=== PATIENT | male | born 1965 | race Caucasian/White ===

== ENCOUNTER 2018-07-27 13:08 | Emergency (ER) | payer MEDICAID ==
[~2018-07-27] VITALS: Ht 162.6 cm; Wt 99.8 kg
[~2018-07-27 13:08] MED LIST: ASPI-524 PO; [UNRECOGNIZED DRUG - OTHER]
--- NOTE | 2018-07-27 13:11 | NUR ---
PT BIB MOTHER TO ER BED 09 C/O HEADACHE AND LIGHTHEADEDNESS S/P POSSIBLE SYNCOPAL EPISODE YESTERDAY. PT IS AAOX3, DENIES ANY CHEST PAIN OR SOB. PER , PT STATES HEADACHE PROGRESSIVELY GOT WORST SINCE FALLING YESTERDAY. PT IS GOWNED AND PLACED ON MONITOR. STABLE VITALS AWAITING MD ALFREDO. Addendum: 07/27/18 at 1832 by HELENE PT IS BIB . NOT MOTHER.
--- NOTE | 2018-07-27 13:33 | NUR ---
DANIEL BAINS AT BEDSIDE FOR EVAL.
--- NOTE | 2018-07-27 13:39 | NUR ---
Angelia faulkner in [facility] - 07/27/18 at 1611 by HELENE DANIEL BAINS AT BEDSIDE FOR SAYDA.
--- NOTE | 2018-07-27 13:40 | NUR ---
IV LINE STARTED BLOOD DRAWN AND SENT TO LAB.
[2018-07-27] MEDS ORDERED: ACETAMINOPHEN ES 500 MG TABLET ONE (13:48)
[2018-07-27 13:51] LABS: BASOPHILS # (AUTO) 0.1 /CMM (0.0-0.2); BASOPHILS % (AUTO) 0.6 % (0.0-2.0); EOSINOPHILS % (AUTO) 0.4 % (0.0-6.0); HEMATOCRIT 46 % (39-51); HEMOGLOBIN 15.9 g/dL (13.5-17.5); LYMPHOCYTES # (AUTO) 1.7 /CMM (0.8-4.8); LYMPHOCYTES % (AUTO) 15.4 % (20.0-44.0); MEAN CORPUSCULAR HGB CONC 35 g/dl (31.0-36.0); MEAN CORPUSCULAR VOLUME 93 fL (80-96); MONOCYTES # (AUTO) 0.6 /CMM (0.1-1.30); MONOCYTES % (AUTO) 5.5 % (2.0-12.0); NEUTROPHILS # (AUTO) 8.7 /CMM (1.8-8.9); NEUTROPHILS % (AUTO) 78.1 % (43.0-81.0); PLATELET COUNT (AUTO) 217 /CMM (150-450); RED BLOOD CELL COUNT(AUTO) 4.92 MIL/uL (4.5-6.0); WHITE BLOOD COUNT (AUTO) 11.1 K/uL (4.3-11.0)
[2018-07-27 13:58] LABS: CALCIUM, SERUM 9.5 mg/dL (8.5-10.1); CARBON DIOXIDE 28 mmol/L (21-32); CHLORIDE 103 mmol/L (98-107); CREATININE 0.9 mg/dL (0.6-1.3); GLUCOSE 145 mg/dL (74-106); POTASSIUM 4.1 mmol/L (3.5-5.1); SODIUM SERUM 139 mmol/L (136-145); UREA NITROGEN, BLOOD 14 mg/dL (7-18)
[2018-07-27] MEDS ORDERED: IV NS 0.9% 1,000 ML BAG IV ONE (14:00)
[2018-07-27] MEDS ORDERED: ACETAMINOPHEN 325 MG TABLET PO ONE (14:00)
[2018-07-27 14:03] LABS: ALANINE AMINOTRANSFERASE 67 U/L (12-78); ALBUMIN 4.1 g/dL (3.4-5.0); ALKALINE PHOSPHATASE 75 U/L (46-116); ASPARTATE AMINOTRANSFERASE 26 U/L (15-37); BILIRUBIN,DIRECT 0.1 mg/dL (0.0-0.2); BILIRUBIN,TOTAL 0.5 mg/dL (0.2-1.0); TOTAL PROTEIN, SERUM 8.5 g/dL (6.4-8.2)
--- NOTE | 2018-07-27 15:14 | NUR ---
DR WHITE AT BEDSIDE FOR EVAL.
[2018-07-27] MEDS ORDERED: LEVETIRACETAM (500MG) 500 MG in IV NS 0.9% 100 ML IV ONE (15:30)
[2018-07-27] MEDS ORDERED: MIRT15TA7 PO (15:45)
[2018-07-27] MEDS ORDERED: OMEG1CAP PO (15:45)
[2018-07-27] MEDS ORDERED: ERGO500040 PO (15:45)
[2018-07-27] MEDS ORDERED: IBUP-1955 PO (15:45)
[2018-07-27] MEDS ORDERED: AMLO5TAB9 PO (15:45)
[2018-07-27] MEDS ORDERED: ASPI-1152 PO (15:45)
[2018-07-27] MEDS ORDERED: ATOR40TA PO (15:45)
[2018-07-27] MEDS ORDERED: LOSA1TAB36 PO (15:45)
--- NOTE | 2018-07-27 16:03 | NUR ---
[facility] PAGED, TECHNICAL SERVICES ASSISTANT
[2018-07-27] MEDS ORDERED: HYDROCODONE/APAP 5/325MG 1 EACH TABLET ONE (17:46)
[2018-07-27] MEDS ORDERED: HYDROCODONE/APAP 5/325MG 1 EACH TABLET PO ONE (18:00)
--- NOTE | 2018-07-27 18:45 | NUR ---
PT RESTING IN BED. APPEARS MORE RELAXED. ON MONITOR. VSS. AT BEDSIDE.
--- NOTE | 2018-07-27 18:51 | NUR ---
CALLED [facility] AT [phone], SPOKE WITH FABIOLA, HE IS STILL WORKING ON TRANSFER.
--- NOTE | 2018-07-27 19:21 | NUR ---
REPORT TO CANDY FISH FOR [facility].
--- NOTE | 2018-07-27 19:28 | NUR ---
RECEIVED CALL FROM NADIYA WITH [facility] TRANSF[facility], PT ACCEPTED TO [facility] BY DR. DELGADILLO, GOING TO ROOM ICU BED 10 NUMBER FOR REPORT IS [phone]. AUTH # FOR AMBULANCE IS [id number]
--- NOTE | 2018-07-27 19:33 | NUR ---
CALLED [facility] FOR TRANSPORT TO [facility], ETA 30 MIN. TRIP #[id number]
--- NOTE | 2018-07-27 19:42 | NUR ---
REPORT GIVEN TO CL FISH FOR [facility] AT [facility] ICU BED 10.
[2018-07-27 20:30] VITALS: BP 132/66
--- NOTE | 2018-07-27 20:32 | NUR ---
Patient is resting comfortably in bed with eyes closed. Easily aroused. VSS
== END 2018-07-27 20:47 | disposition short-term general hospital (02) ==
LOC: ER 13:09
DX: S00.81XA Abrasion of other part of head, initial encounter (principal); S00.211A Abrasion of right eyelid and periocular area, initial encounter; R55 Syncope and collapse; E78.5 Hyperlipidemia, unspecified; I10 Essential (primary) hypertension; Z95.1 Presence of aortocoronary bypass graft; Z98.890 Other specified postprocedural states; Z79.82 Long term (current) use of aspirin; W18.39XA Other fall on same level, initial encounter; Y93.89 Activity, other specified; Y92.89 Other specified places as the place of occurrence of the external cause; Y99.8 Other external cause status
CPT/HCPCS: 36415; 70450; 72050; 80048; 80076; 84484; 85025; 85730; 87081; 93005; 96360; 99285; A4606; J7030; L0172; J1953